=== PATIENT | male | born 1960 | race Caucasian/White ===

== ENCOUNTER 2018-07-04 16:07 | Emergency (ER) | payer OTHER ==
[2018-07-04 16:17] VITALS: TEMP 98.3; O2SAT 98
[2018-07-04 16:50] VITALS: BP 112/70; PULSE 67; RESP 18
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
== END 2018-07-04 17:47 | disposition home or self-care (01) ==
LOC: C.ER 16:07 → EDBD 16:07 → C.ER 17:47
DX: M54.5 Low back pain (principal)